=== PATIENT | male | born 1955 ===

== ENCOUNTER 2024-12-17 10:47 | Emergency (ER) | payer BC, MEDICARE ==
[2024-12-17 10:55] VITALS: TEMP 97.9
--- NOTE | 2024-12-17 11:24 | ED ---
Recheck HPI - General Chief Complaint: Recheck/Abnormal Lab/Rx Stated Complaint: Irrg Labs Time Seen by Provider: 12/17/24 11:20 Source: patient, family (), RN notes reviewed Mode of arrival: ambulatory Limitations: no limitations - History of Present Illness Initial Comments: 69-year-old male presented to ER for evaluation of elevated blood pressure. Patient reports a history of hypertension and takes amlodipine 5 mg daily and metoprolol 25mg twice daily he states he took his medications around 8 AM this morning. Patient was seen by for infusions due to prostate cancer. Vital signs completed at infusion center found patient to be hypertensive with systolics over 200. Patient presents to emergency department for further evaluation. He does report a mild headache rating it a 3 out of 10. He denies any dizziness, lightheadedness, nausea, vomiting, double blurry vision, paresthesias to bilateral upper or lower extremities, chest pain, shortness of breath or peripheral edema. Patient denies history of IL or cardiac stent placement. - Related Data Allergies Allergy/AdvReac Type Severity Reaction Status Date / Time No Known Allergies Allergy Verified 12/17/24 10:55 Review of Systems ROS Statement: Those systems with pertinent positive or pertinent negative responses have been documented in the HPI. ROS Other: All systems not noted in ROS Statement are negative. Past Medical History Past Medical History: Cancer, Hypertension Additional Past Medical History / Comment(s): Prostate Cancer Past Surgical History: No Surgical Hx Reported Smoking Status: Never smoker Past Alcohol Use History: None Reported Past Drug Use History: None Reported General Exam Limitations: no limitations General appearance: alert, in no apparent distress Eye exam: Present: normal appearance, PERRL, EOMI. Absent: scleral icterus, conjunctival injection, periorbital swelling Pupils: Present: normal accommodation ENT exam: Present: normal exam, normal oropharynx, mucous membranes moist Respiratory exam: Present: normal lung sounds bilaterally. Absent: respiratory distress, wheezes, rales, rhonchi, stridor Cardiovascular Exam: Present: normal rhythm, bradycardia, normal heart sounds Extremities exam: Present: normal inspection, full ROM, normal capillary refill (2+ bilateral radial and DP pulses.). Absent: tenderness, pedal edema, joint swelling, calf tenderness Neurological exam: Present: alert, oriented X3, CN II-XII intact, other (NIH 0) Course Vital Signs 12/17/24 12/17/24 12/17/24 10:50 11:55 12:58 Temperature 97.9 F Pulse Rate 51 L 54 L 54 L Respiratory 17 18 18 Rate Blood Pressure 204/92 168/82 161/78 O2 Sat by Pulse 97 96 97 Oximetry 12/17/24 13:35 Temperature Pulse Rate 54 L Respiratory 18 Rate Blood Pressure 159/82 O2 Sat by Pulse 96 Oximetry Medical Decision Making - Medical Decision Making Was pt. sent in by a medical professional or institution (, PA, WIRE DRAWING SETTER, urgent care, hospital, or jail...) When possible be specific @ -Patient sent by 's office for further evaluation fo elevated blood pressure Did you speak to anyone other than the patient for history (EMS, parent, family, police, friend...)? What history was obtained from this source @ -, bedside, aiding in HPI past medical history. Did you review nursing and triage notes (agree or disagree)? Why? @ -I reviewed and agree with nursing and triage notes Were old charts reviewed (outside hosp., previous admission, EMS record, old EKG, old radiological studies, urgent care reports/EKG's, jail records)? Report findings @ -No old charts were reviewed Differential Diagnosis (chest pain, altered mental status, abdominal pain women, abdominal pain men, vaginal bleeding, weakness, fever, dyspnea, syncope, headach e, dizziness, GI bleed, back pain, seizure, CVA, palpatations, mental health, musculoskeletal)? @ -Hypertensive emergency, CVA, CKD, electrolyte abnormality,... This list is not meant to be all-inclusive EKG interpreted by me (3pts min.). @ -As above X-rays interpreted by me (1pt min.). @ -None done CT interpreted by me (1pt min.). @ -None done U/S interpreted by me (1pt. min.). @ -None done What testing was considered but not performed or refused? (CT, X-rays, U/S, labs)? Why? @ - CT brain was considered however headache has improved after analgesic medications along with blood pressure improvement. No acute neurological findings on exam. No other associated symptoms. Patient is agreeable to forego CT scan. What meds were considered but not given or refused? Why? @ -None Did you discuss the management of the patient with other professionals (professionals i.e. Dr., PA, WIRE DRAWING SETTER, lab, RT, psych nurse, social worker assistant, inspector and tester, teacher, environmental protection officer, special education case manager)? Give summary @ -No Was smoking cessation discussed for >3mins.? @ -No Was critical care preformed (if so, how long)? @ -No Were there social determinants of health that impacted care today? How? (Homelessness, low income, unemployed, alcoholism, drug addiction, transportation, low edu. Level, literacy, decrease access to med. care, snf, rehab)? @ -No Was there de-escalation of care discussed even if they declined (Discuss DNR or withdrawal of care, Hospice)? DNR status @ -No What co-morbidities impacted this encounter? (DM, HTN, Smoking, COPD, CAD, Cancer, CVA, ARF, Chemo, Hep., AIDS, mental health diagnosis, sleep apnea, morbid obesity)? @ -Hypertension Was patient admitted / discharged? Hospital course, mention meds given and route, prescriptions, significant lab abnormalities, going to OR and other pertinent info. @ -Discharge. 69-year-old male presented the ER for evaluation of elevated blood pressure. Patient sent by Dr. Caban's office. Upon arrival patient hypertensive at 204/92 and bradycardic at 51 bpm vitals otherwise stable. Patient in no signs of acute distress nontoxic-appearing. Patient is neurovascularly intact with no acute neurological findings on exam. Laboratory studies obtained unimpressive. Troponin undetectable, <0.012. EKG showing sinus bradycardia with no acute evidence of infarct or ischemia. Patient provided with IV hydralazine with improvement of blood pressures to 159/82 at discharge. Patient also provided with p.o. acetaminophen for headache. Upon reevaluation, patient educated on today's findings, all questions answered. Patient reporting improvement of headache and is eager for discharge. CT brain was considered however headache has improved after analgesic medications along with blood pressure improvement. Patient is agreeable to forego CT scan. Strict return parameters discussed. Patient will be discharged stable condition vies follow-up closely with PCP, contact information provided for residency clinics. Continue current antihypertensive medications. I also recommended low sodium diet and blood pressure log to bring to PCP appointment. Patient verbally expressed understanding and agreement with care plan. Case discussed with ED attending with Dr. Haynes Undiagnosed new problem with uncertain prognosis? @ -No Drug Therapy requiring intensive monitoring for toxicity (Heparin, Nitro, Insulin, Cardizem)? @ -No Were any procedures done? @ -No Diagnosis/symptom? @ -Hypertension/headache Acute, or Chronic, or Acute on Chronic? @ -Acute Uncomplicated (without systemic symptoms) or Complicated (systemic symptoms)? @ -Uncomplicated Side effects of treatment? @ -No Exacerbation, Progression, or Severe Exacerbation? @ -No Poses a threat to life or bodily function? How? (Chest pain, [place], IL, pneumonia, PE, COPD, DKA, ARF, appy, cholecystitis, CVA, Diverticulitis, Homicidal, Suicidal, threat to staff... and all critical care pts) @ -No - Lab Data Result diagrams: 12/17/24 11:43 12/17/24 11:43 Lab Results 12/17/24 12/17/24 12/17/24 Range/Units 11:43 11:43 11:47 WBC 5.69 (4.50-10.00) 10*3/uL RBC 5.20 (4.40-5.60) 10*6/uL Hgb 15.2 (13.0-17.0) g/dL Hct 44.2 (39.6-50.0) % MCV 85.0 (80.0-97.0) fL MCH 29.2 (27.0-32.0) pg MCHC 34.4 (32.0-37.0) g/dL Plt Count 164 (140-440) 10*3/uL MPV 8.1 L (9.5-12.2) fL Immature Gran % (Auto) 0.5 % Neutrophils % 53.3 % Lymphocytes % 36.7 % Monocytes % 8.6 % Eosinophils % 0.5 % Basophils % 0.4 % Immature Gran # 0.03 (0.00-0.04) 10*3/uL Neutrophils # 3.03 (1.80-7.70) 10*3/uL Lymphocytes # 2.09 (0.90-5.00) 10*3/uL Monocytes # 0.49 (0.20-1.00) 10*3/uL Eosinophils # 0.03 L (0.04-0.35) 10*3/uL Basophils # 0.02 (0.00-0.10) 10*3/uL PT 10.8 (10.0-12.5) sec INR 1.0 (<1.2) APTT 24.3 (22.0-30.0) sec Sodium 140 (137-145) mmol/L Potassium 4.6 (3.5-5.1) mmol/L Chloride 108 H (98-107) mmol/L Carbon Dioxide 22 (22-30) mmol/L Anion Gap 10 mmol/L BUN 13 (9-20) mg/dL Creatinine 1.01 (0.66-1.25) mg/dL Est GFR (CKD-EPI)AfAm 86 (>60 ml/min/1.73 sqM) Est GFR (CKD-EPI)NonAf 75 (>60 ml/min/1.73 sqM) Glucose 121 H (74-99) mg/dL Calcium 9.6 (8.4-10.2) mg/dL Magnesium 2.1 (1.6-2.3) mg/dL Total Bilirubin 0.7 (0.2-1.3) mg/dL AST 27 (17-59) U/L ALT 24 (4-49) U/L Alkaline Phosphatase 86 (38-126) U/L Troponin I (0.000-0.034) ng/mL Total Protein 7.5 (6.3-8.2) g/dL Albumin 4.5 (3.5-5.0) g/dL / Range/Units 11:47 WBC (4.50-10.00) 10*3/uL RBC (4.40-5.60) 10*6/uL Hgb (13.0-17.0) g/dL Hct (39.6-50.0) % MCV (80.0-97.0) fL MCH (27.0-32.0) pg MCHC (32.0-37.0) g/dL Plt Count (140-440) 10*3/uL MPV (9.5-12.2) fL Immature Gran % (Auto) % Neutrophils % % Lymphocytes % % Monocytes % % Eosinophils % % Basophils % % Immature Gran # (0.00-0.04) 10*3/uL Neutrophils # (1.80-7.70) 10*3/uL Lymphocytes # (0.90-5.00) 10*3/uL Monocytes # (0.20-1.00) 10*3/uL Eosinophils # (0.04-0.35) 10*3/uL Basophils # (0.00-0.10) 10*3/uL PT (10.0-12.5) sec INR (<1.2) APTT (22.0-30.0) sec Sodium (137-145) mmol/L Potassium (3.5-5.1) mmol/L Chloride (98-107) mmol/L Carbon Dioxide (22-30) mmol/L Anion Gap mmol/L BUN (9-20) mg/dL Creatinine (0.66-1.25) mg/dL Est GFR (CKD-EPI)AfAm (>60 ml/min/1.73 sqM) Est GFR (CKD-EPI)NonAf (>60 ml/min/1.73 sqM) Glucose (74-99) mg/dL Calcium (8.4-10.2) mg/dL Magnesium (1.6-2.3) mg/dL Total Bilirubin (0.2-1.3) mg/dL AST (17-59) U/L ALT (4-49) U/L Alkaline Phosphatase (38-126) U/L Troponin I <0.012 (0.000-0.034) ng/mL Total Protein (6.3-8.2) g/dL Albumin (3.5-5.0) g/dL - EKG Data -: EKG Interpreted by Me EKG Comments: EKG taken 11: 08 showing a sinus bradycardia. No ST segment elevations or depressions. No T wave inversions. Ventricular rate 50, WI interval 198, QRS duration 106, QT/QTc 472/446. Disposition Clinical Impression: Elevated blood pressure reading Disposition: HOME SELF-CARE Condition: Stable Instructions (If sedation given, give patient instructions): Heart Healthy Diet (DC), How to Take a Blood Pressure (ED), Low-Sodium Diet (ED), Hypertension in the Older Adult (ED) Additional Instructions: Continue blood pressure medications. I recommend you keep a blood pressure log and bring to follow-up appointment with PCP. Have a low threshold of returning to the ER for any new or worsening symptoms. Is patient prescribed a controlled substance at d/c from ED?: No Referrals: Liu Sinha PA [Primary Care Provider] - 1-2 days [facility] [NON-STAFF] - 1-2 days [facility] [NON-STAFF] - 1-2 days Forms: PH Area PCPs Time of Disposition: 13:17
[2024-12-17] MEDS: hydrALAZINE HCL 20 MG/ML 1 ML VIAL IVP STA (11:40)
[2024-12-17] MEDS: ACETAMINOPHEN TAB 325 MG TAB PO STA (11:40)
[2024-12-17 11:52] LABS: Basophils # (A) 0.02 10*3/uL (0.00-0.10); Basophils % (A) 0.4 %; Eosinophils # (A) 0.03 10*3/uL (0.04-0.35); Eosinophils % (A) 0.5 %; HCT 44.2 % (39.6-50.0); HGB 15.2 g/dL (13.0-17.0); Lymphocytes # (A) 2.09 10*3/uL (0.90-5.00); Lymphocytes % (A) 36.7 %; MCH 29.2 pg (27.0-32.0); MCHC 34.4 g/dL (32.0-37.0); MCV 85.0 fL (80.0-97.0); Monocytes # (A) 0.49 10*3/uL (0.20-1.00); Monocytes % (A) 8.6 %; Neutrophils # (A) 3.03 10*3/uL (1.80-7.70); Neutrophils % (A) 53.3 %; Platelet Count 164 10*3/uL (140-440); RBC 5.20 10*6/uL (4.40-5.60); RDW 13.2 % (11.5-14.5); WBC 5.69 10*3/uL (4.50-10.00)
[2024-12-17 11:57] VITALS: PULSE 54; RESP 18
[2024-12-17 12:14] LABS: ALT 24 U/L (4-49); AST 27 U/L (17-59); African American GFR (CKD) 86 (>60 ml/min/1.73 sqM); Albumin 4.5 g/dL (3.5-5.0); Alkaline Phosphatase 86 U/L (38-126); Anion Gap 10 mmol/L; Blood Urea Nitrogen 13 mg/dL (9-20); Calcium 9.6 mg/dL (8.4-10.2); Carbon Dioxide 22 mmol/L (22-30); Chloride 108 mmol/L (98-107); Glucose 121 mg/dL (74-99); Magnesium 2.1 mg/dL (1.6-2.3); Non-African American GFR(CKD) 75 (>60 ml/min/1.73 sqM); Potassium 4.6 mmol/L (3.5-5.1); Sodium 140 mmol/L (137-145); Total Protein 7.5 g/dL (6.3-8.2)
[2024-12-17 12:24] LABS: INR 1.0 (<1.2); Partial Thromboplastin Time 24.3 sec (22.0-30.0); Prothrombin Time 10.8 sec (10.0-12.5)
[2024-12-17 13:37] VITALS: BP 159/82
== END 2024-12-17 13:37 | disposition home or self-care (01) ==
LOC: EC 10:47
DX: I10 Essential (primary) hypertension (principal)
CPT/HCPCS: 36415; 93005; 80053; 83735; 84484; 85025; 85610; 85730; 99284; 96374; J0360